=== PATIENT | male | born 1965 | race Caucasian/White ===

== ENCOUNTER 2016-04-01 12:11 | Emergency (ER) | payer OTHER ==
[2016-04-01 12:52] VITALS: RESP 16; TEMP 99.2
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
[2016-04-01 13:21] VITALS: BP 177/93; PULSE 84
[2016-04-01] MEDS ORDERED: HYDROcodone/APAP 5-325MG 1 EACH TAB PO STA (13:31)
== END 2016-04-01 13:40 | disposition home or self-care (01) ==
LOC: EC 12:11
DX: K08.89 Other specified disorders of teeth and supporting structures (principal); I10 Essential (primary) hypertension; M79.7 Fibromyalgia; E78.5 Hyperlipidemia, unspecified; F31.9 Bipolar disorder, unspecified; F17.200 Nicotine dependence, unspecified, uncomplicated; Z79.899 Other long term (current) drug therapy
CPT/HCPCS: 99282

== ENCOUNTER 2016-10-15 13:29 | Emergency (ER) | payer OTHER ==
[2016-10-15 13:53] VITALS: BP 170/91; PULSE 69; RESP 18; TEMP 99.2
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
--- NOTE | 2016-10-15 14:24 | XR ---
EXAMINATION TYPE: XR ribs LT w pa chest x-ray , 5 VIEWS DATE OF EXAM ORDERED: 10/15/2016 HISTORY: Pain. COMPARISON: Previous study dated 02/29/2016. FINDINGS: There has been previous rotator cuff surgery on the right. The lungs are clear. Pleural space are clear. The heart is not enlarged. There is no evidence of pneu mothorax. No displaced rib fracture is seen. IMPRESSION: 1. NO ACUTE INTRATHORACIC ABNORMALITY. 2. NO DISPLACED RIB FRACTURE IDENTIFIED. 3. POSTSURGICAL CHANGE.
== END 2016-10-15 14:35 | disposition home or self-care (01) ==
LOC: EC 13:29
DX: S20.212A Contusion of left front wall of thorax, initial encounter (principal); M79.7 Fibromyalgia; E78.5 Hyperlipidemia, unspecified; I10 Essential (primary) hypertension; F31.9 Bipolar disorder, unspecified; F17.200 Nicotine dependence, unspecified, uncomplicated; Z79.899 Other long term (current) drug therapy; V18.4XXA Pedal cycle driver injured in noncollision transport accident in traffic accident, initial encounter; Y93.55 Activity, bike riding; Y92.89 Other specified places as the place of occurrence of the external cause
CPT/HCPCS: 99283

== ENCOUNTER 2017-06-08 11:12 | Emergency (ER) | payer OTHER ==
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
[2017-06-08] MEDS ORDERED: HYDROcodone/APAP 5-325MG 1 EACH TAB PO STA (12:35)
[2017-06-08] MEDS ORDERED: KETOROLAC 60 MG/2 ML VIAL IM STA (12:35)
--- NOTE | 2017-06-08 13:06 | XR ---
EXAMINATION TYPE: XR ribs LT w pa chest xray DATE OF EXAM: 06/08/2017 COMPARISON: 10/15/2016 chest x-ray HISTORY: Pain TECHNIQUE: PA view the chest and 4 views of the left ribs are submitted. FINDINGS: Pleural-based thickening noted bilaterally. There is postsurgical change involving the righ t shoulder. Chronic appearing deformity involving the distal left clavicle stable from previous chest x-ray. There is a deformity of the posterior left third, fourth rib and fifth rib. No sizable pneumothorax. IMPRESSION: 1. Mildly displaced fractures involving the posterior left third, fourth and fifth ribs. 2. Deformity involving the distal left clavicle appears chronic and stable from chest x-ray of 017.
[2017-06-08 13:38] VITALS: BP 146/87; PULSE 87; RESP 16; TEMP 98.7
== END 2017-06-08 13:50 | disposition home or self-care (01) ==
LOC: EC 11:12
DX: S22.32XA Fracture of one rib, left side, initial encounter for closed fracture (principal); I10 Essential (primary) hypertension; F17.200 Nicotine dependence, unspecified, uncomplicated; Z79.899 Other long term (current) drug therapy; W01.0XXA Fall on same level from slipping, tripping and stumbling without subsequent striking against object, initial encounter
CPT/HCPCS: 71101; 99284; 96372; J1885

== ENCOUNTER 2017-09-07 13:52 | Emergency (ER) | payer OTHER ==
[2017-09-07 14:07] VITALS: BP 156/83; PULSE 90; RESP 20; TEMP 99.9
[2017-09-07] MEDS ORDERED: HYDROcodone/APAP 5-325MG 1 EACH TAB PO STA (14:23)
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
--- NOTE | 2017-09-07 14:55 | XR ---
EXAMINATION TYPE: XR hand complete RT DATE OF EXAM: 09/07/2017 COMPARISON: NONE HISTORY: Pain TECHNIQUE: Three views are submitted. FINDINGS: There is a deformity of the neck of the distal fourth metacarpal compatible with fracture. Tiny cyst involving the head of the third metacarpal. Cystic change or lucency involving the lunate may be chronic. IMPRESSION: 1. There is a mildly displaced fracture involving the distal fourth metacarpal. 2. Question lunate osteonecrosis. Follow-up MRI suggested.
== END 2017-09-07 15:30 | disposition home or self-care (01) ==
LOC: EC 13:52
DX: S62.334A Displaced fracture of neck of fourth metacarpal bone, right hand, initial encounter for closed fracture (principal); I10 Essential (primary) hypertension; F17.200 Nicotine dependence, unspecified, uncomplicated; Z88.6 Allergy status to analgesic agent; Z79.899 Other long term (current) drug therapy; W19.XXXA Unspecified fall, initial encounter; Y93.67 Activity, basketball; Y92.009 Unspecified place in unspecified non-institutional (private) residence as the place of occurrence of the external cause
CPT/HCPCS: 29125; 99283

== ENCOUNTER 2017-11-18 13:20 | Emergency (ER) | payer OTHER ==
[2017-11-18 13:29] VITALS: BP 153/92; PULSE 89; RESP 16; TEMP 98.8
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
--- NOTE | 2017-11-18 14:12 | XR ---
Right foot and right ankle HISTORY: Trauma and pain 3 views of the right foot, 3 views of the right ankle submitted. No comparisons Patient is status post reduction internal fixation for distal fibular fracture. Ossific densities pre sent at the ankle inferior to the medial malleolus which is well-corticated and also on the oblique v iew at the distal tibia, osteochondral defects present at the ankle mortise. Degenerative changes are present within the foot. Hypertrophic change at the level of the proximal in terphalangeal joint of the third digit is suspected, correlate for point tenderness to assess for fra cture at the medial aspect of the third digit. No dislocation. IMPRESSION: Evidence of previous trauma, correlate for possible fracture third digit, findings could be due to osteoarthritis. Findings of the ankle joint as described. There is likely osteochondral fra ctures which are possibly chronic at the ankle mortise.
== END 2017-11-18 14:35 | disposition home or self-care (01) ==
LOC: EC 13:20
DX: M79.671 Pain in right foot (principal); I10 Essential (primary) hypertension; F17.200 Nicotine dependence, unspecified, uncomplicated; Z79.899 Other long term (current) drug therapy; Z88.6 Allergy status to analgesic agent; Z87.81 Personal history of (healed) traumatic fracture; Z98.890 Other specified postprocedural states; W17.89XA Other fall from one level to another, initial encounter; Y93.39 Activity, other involving climbing, rappelling and jumping off
CPT/HCPCS: 99283

== ENCOUNTER 2018-10-30 13:11 | Emergency (ER) | payer OTHER ==
[2018-10-30 13:41] VITALS: BP 164/86; PULSE 76; RESP 16; TEMP 98.2
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
--- NOTE | 2018-10-30 14:17 | XR ---
EXAMINATION TYPE: XR wrist complete RT DATE OF EXAM: 10/30/2018 COMPARISON: NONE HISTORY: Pain after falling TECHNIQUE: 4 views FINDINGS: There are small cystic changes in the lunate and triquetrum. Scaphoid is intact. I see no f racture nor dislocation. There is minor spurring at the first carpometacarpal joint. There are no ero sions. IMPRESSION: Mild osteoarthritis. No fracture seen.
== END 2018-10-30 14:50 | disposition home or self-care (01) ==
LOC: EC 13:11
DX: S63.501A Unspecified sprain of right wrist, initial encounter (principal); S50.812A Abrasion of left forearm, initial encounter; I10 Essential (primary) hypertension; F17.200 Nicotine dependence, unspecified, uncomplicated; Z79.899 Other long term (current) drug therapy; Z88.6 Allergy status to analgesic agent; V18.9XXA Unspecified pedal cyclist injured in noncollision transport accident in traffic accident, initial encounter
CPT/HCPCS: 99283

== ENCOUNTER 2019-03-09 12:15 | Inpatient (IN) | payer OTHER ==
--- NOTE | 2019-03-09 13:45 | XR ---
Chest x-ray with right RIBS HISTORY: Trauma and pain From view of the chest and 4 views of the right ribs. Correlation to chest x-ray 06/08/2017 Subcutaneous emphysema has developed in the interval. There are displaced rib fractures at the right eighth and ninth, 10th ribs laterally. Minimal right apical pneumothorax noted. Heart size is normal. No evident pleural effusion. Postop changes noted to the right shoulder. Minimal subsegmental basila r atelectatic changes. IMPRESSION: Multiple right-sided rib fractures, minimal apical pneumothorax and subcutaneous emphysem a.
[2019-03-09] MEDS ORDERED: KETOROLAC 30 MG/ML 1 ML VIAL IVP STA (14:04)
[2019-03-09] MEDS ORDERED: MORPHINE SULFATE 4 MG/ML SYRINGE IVP STA ×2 (14:16→16:16)
[2019-03-09 14:34] LABS: HCT 43.2 % (39.0-53.0); HGB 14.9 gm/dL (13.0-17.5); MCH 34.4 pg (25.0-35.0); MCHC 34.5 g/dL (31.0-37.0); MCV 99.8 fL (80.0-100.0); Mean Platelet Volume 7.2; Platelet Count 297 k/uL (150-450); RBC 4.33 m/uL (4.30-5.90); RDW 12.9 % (11.5-15.5); WBC 11.3 k/uL (3.8-10.6)
[2019-03-09 14:43] LABS: ALT 21 U/L (4-49); AST 37 U/L (17-59); African American GFR (CKD) >90 (>60 ml/min/1.73 sqM); Albumin 3.5 g/dL (3.5-5.0); Alkaline Phosphatase 58 U/L (38-126); Anion Gap 7 mmol/L; Blood Urea Nitrogen 8 mg/dL (9-20); Calcium 9.1 mg/dL (8.4-10.2); Carbon Dioxide 25 mmol/L (22-30); Chloride 101 mmol/L (98-107); Glucose 83 mg/dL (74-99); Non-African American GFR(CKD) >90 (>60 ml/min/1.73 sqM); Potassium 4.4 mmol/L (3.5-5.1); Sodium 133 mmol/L (137-145); Total Bilirubin 1.4 mg/dL (0.2-1.3); Total Protein 6.6 g/dL (6.3-8.2)
--- NOTE | 2019-03-09 15:18 | CT ---
EXAMINATION TYPE: CT ChestAbdPelvis w con DATE OF EXAM: 03/09/2019 INDICATION: right side pain post fall COMPARISON: None CT DLP: 1103.1 mGycm CONTRAST: Performed without Oral Contrast and with IV Contrast, patient injected with 100 mL of Isovue 300. TECHNIQUE: Axial images at 5 mm thick sections. Reconstructed images in the coronal plane. Delayed images through the kidneys. FINDINGS: CT CHEST: Free air is within the subcutaneous tissues on the right. 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 There is some costochondral vertebral fracture of the 10th media l rib small fracture of the proximal 11th rib also be present aNo flail chest is evident. Pneumothor ax is not present. Minimal right pleural fluid may be present. There are old posterior left upper rib fractures. Vertebral body heights are preserved. Portion of the thyroid visualized is normal. No suspicious lung nodules or focal infiltrates are present. No enlarged mediastinal or hilar adenopathy is evident. The ascending aorta diameter at the level of the main pulmonary artery is 4.3 cm. The main pulmonary artery diameter at the bifurcation is 2.7 cm. Some mild coronary artery calcification may be present . CT ABDOMEN: Liver: Mild fatty infiltration may be present. No lacerations are evident. Spleen: Normal Pancreas: Normal Adrenal glands: The adrenal glands are normal. Gallbladder: Normal Kidneys: No masses are evident. No hydronephrosis is present. No cysts are present. Delayed images were obtained through the kidneys, which remain unremarkable. Aorta: Vascular calcification is within the aorta. Inferior vena cava: Normal. CT PELVIS: Loops of bowel within the abdomen and pelvis are normal. Postsurgical changes are at the right lo wer quadrant Colon and Small bowel. Appendix: Not identified. Postsurgical changes are present. Urinary bladder: Normal. Genitourinary structures: Prostate is slightly prominent. Osseous structures: No suspicious lytic or sclerotic lesions. IMPRESSIONS: 1. Right eighth ninth and 10th rib fractures with costovertebral junction rib fractures at T10 and 11 on the right. 2. No pneumothorax. Some subcutaneous emphysema is present on the right rib fracture levels. 3. Minimal right pleural fluid.
[2019-03-09] MEDS ORDERED: HYDROmorphone 0.5 MG/0.5 ML SYRINGE IVP PRN (16:27)
[2019-03-09] MEDS ORDERED: NALOXONE 0.4 MG/ML 1 ML VIAL IV PRN (16:27)
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
[2019-03-09 18:23] VITALS: RESP 18
[2019-03-09] MEDS: HYDROmorphone 1 MG/ML 1 ML SYRINGE IVP PRN ×2 (20:46→23:14)
[2019-03-09] MEDS: ALPRAZolam 0.25 MG TAB PO PRN (23:14)
[2019-03-10] MEDS: HYDROmorphone 1 MG/ML 1 ML SYRINGE IVP PRN ×4 (02:33→12:33)
[2019-03-10] MEDS: guaiFENesin SYRUP 100MG/5ML 200 MG/10 ML CUP PO PRN ×2 (02:36→09:18)
[2019-03-10] MEDS ORDERED: ONDANSETRON 4 MG/2 ML VIAL IVP PRN (02:37)
[2019-03-10] MEDS: ALPRAZolam 0.25 MG TAB PO PRN (05:09)
[2019-03-10 08:16] VITALS: BP 146/92; PULSE 82; TEMP 98.1
[2019-03-10] MEDS ORDERED: KETOROLAC 30 MG/ML 1 ML VIAL IVP PRN (11:10)
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
[2019-03-10] MEDS ORDERED: KETOROLAC 30 MG/ML 1 ML VIAL IVP SCH (14:15)
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
--- NOTE | 2019-03-10 14:53 | XR ---
EXAMINATION TYPE: XR chest 2V DATE OF EXAM: 03/10/2019 COMPARISON: Prior chest x-ray dated 03/09/2019 HISTORY: Rib fractures TECHNIQUE: Frontal and lateral views of the chest are obtained. FINDINGS: Some patchy basilar density on the right likely reflects subsegmental atelectatic change a nd associated effusion. Subcutaneous emphysema is again noted. Old rib fractures in the left upper ch est are stable. Multiple right-sided rib fractures are again noted. No evident pneumothorax. IMPRESSION: Probable basilar atelectasis and associated effusion.
--- NOTE | 2019-03-10 14:58 | P.DS ---
Providers Date of admission: 03/09/19 16:28 Expected date of discharge: 03/10/19 Attending physician: Camila Valdez Consults: 03/09/19 16:27 Consult Physician Stat Consulting Provider: Gregorio Larson Consult Reason/Comments: multiple traumatic rib fractures Do you want consulting provider notified?: Yes Consult Physician Stat Consulting Provider: [place] Consult Reason/Comments: Multiple traumatic rib fractures Do you want consulting provider notified?: Yes Primary care physician: Tawanna Miller Hospital Course: 54-year-old male who presented to the emergency room after sustaining a fall down several stairs and landing on his right side. patient presented to the emergency room the following day secondary to pain. Patient underwent workup in the emergency room. Patient was found to have multiple right-sided rib fractures of the eighth, ninth, and 10th ribs per XR. computed tomography scan of the chest abdomen and pelvis was completed revealing right-sided rib fractures of 8, 9, and 10 with costovertebral junction rib fractures at the 10th and 11th rib. No pneumothorax. Patient was admitted to the hospital overnight for observation. Pulmonary was consulted to evaluate patient. patient has remained stable. his pain is controlled on oral medications. history of discharge home today. He is to follow up on an outpatient basis. Please see EMR for further hospital course details. Discharge diagnosis 1 Right-sided chest wall pain secondary to a fall with fractures of ribs 9, 10, 11. There is also costovertebral junction rib fractures at T10 and T11. Subcutaneous emphysema. No pneumothorax. 2 Chronic and ongoing tobacco dependence 3 Marijuana use. 4 Alcohol use. 5 Hypertension. Nurse practitioner note has been reviewed by physician. Signing provider agrees with the documented findings, assessment, and plan of care. Patient Condition at Discharge: Stable Plan - Discharge Summary Discharge Rx Participant: Yes New Discharge Prescriptions: New Nicotine 14Mg/24Hr Patch [Habitrol] 1 patch TRANSDERM DAILY #14 patch Omeprazole 40 mg PO DAILY #30 cap Continue Ibuprofen [Motrin] 600 mg PO TID No Action Lisinopril [Zestril] 10 mg PO DAILY #30 tab amLODIPine [Norvasc] 10 mg PO DAILY Discharge Medication List Lisinopril [Zestril] 10 mg PO DAILY #30 tab 03/01/16 [Rx] amLODIPine [Norvasc] 10 mg PO DAILY 06/08/17 [History] Ibuprofen [Motrin] 600 mg PO TID 03/09/19 [History] Nicotine 14Mg/24Hr Patch [Habitrol] 1 patch TRANSDERM DAILY #14 patch 03/10/19 [Rx] Omeprazole 40 mg PO DAILY #30 cap 03/10/19 [Rx] Follow up Appointment(s)/Referral(s): Paul Stacy MD [Primary Care Provider] - 1-2 days Gregorio Larson MD [STAFF PHYSICIAN] - 1 Week Patient Instructions/Handouts: Fall Prevention (ED) Activity/Diet/Wound Care/Special Instructions: please continue to use your incentive spirometer after discharge.
[2019-03-10] MEDS ORDERED: HEPARIN SODIUM,PORCINE 5,000 UNIT/ML 1 ML VIAL SQ SCH (21:00)
[2019-03-10] MEDS ORDERED: FAMOTIDINE 20 MG TAB PO SCH (21:00)
[2019-03-11] MEDS ORDERED: LISINOPRIL 10 MG TAB PO SCH (09:00)
[2019-03-11] MEDS ORDERED: amLODIPine 10 MG TAB PO SCH (09:00)
== END 2019-03-10 15:46 | disposition home or self-care (01) | DRG 184 ==
LOC: EC 12:15 → OBSVTOIN 16:28 → 1SOBS 16:28
PROVIDERS: ADMIT Surgery Plastic and Reconstructive Surgery; ATTEND Surgery Plastic and Reconstructive Surgery
DX: S22.41XA Multiple fractures of ribs, right side, initial encounter for closed fracture (principal); T79.7XXA Traumatic subcutaneous emphysema, initial encounter; E78.5 Hyperlipidemia, unspecified; M79.7 Fibromyalgia; I10 Essential (primary) hypertension; K58.9 Irritable bowel syndrome, unspecified; K21.9 Gastro-esophageal reflux disease without esophagitis; M19.90 Unspecified osteoarthritis, unspecified site; M54.9 Dorsalgia, unspecified; F17.210 Nicotine dependence, cigarettes, uncomplicated; Z71.6 Tobacco abuse counseling; Z79.1 Long term (current) use of non-steroidal anti-inflammatories (NSAID); Z79.899 Other long term (current) drug therapy; Z86.59 Personal history of other mental and behavioral disorders; Z90.49 Acquired absence of other specified parts of digestive tract; Z86.73 Personal history of transient ischemic attack (TIA), and cerebral infarction without residual deficits; W10.8XXA Fall (on) (from) other stairs and steps, initial encounter; Y92.008 Other place in unspecified non-institutional (private) residence as the place of occurrence of the external cause; Y93.01 Activity, walking, marching and hiking; Z82.49 Family history of ischemic heart disease and other diseases of the circulatory system; Z83.3 Family history of diabetes mellitus
CPT/HCPCS: 36415; 71046; 71260; 74177; 80053; 85027; 96374; 96376; 99285

== ENCOUNTER → 2020-11-27 | Outpatient (CLI) | payer OTHER ==
--- NOTE | 2020-11-27 11:54 | XR ---
EXAMINATION TYPE: XR shoulder complete LT DATE OF EXAM: 11/27/2020 COMPARISON: NONE HISTORY: Pain TECHNIQUE: Three views are submitted. FINDINGS: There is a comminuted displaced fracture of the left humeral neck. Remote appearing fracture of the d istal left clavicle. Chronic rib deformities suggest remote fractures. Metallic density overlying the chest may be superficial to the patient and should be correlated clinically. IMPRESSION: 1. Comminuted displaced fracture left humeral neck.
== END | disposition home or self-care (01) ==
LOC: RADXRMAIN 10:57
PROVIDERS: ATTEND Orthopaedic Surgery Adult Reconstructive Orthopaedic Surgery
DX: S42.212A Unspecified displaced fracture of surgical neck of left humerus, initial encounter for closed fracture (principal)

== ENCOUNTER → 2022-09-24 | Outpatient (CLI) | payer OTHER ==
--- NOTE | 2022-09-24 12:25 | CTL ---
EXAMINATION TYPE: CT Low Dose Lung DATE OF EXAM ORDERED: 09/24/2022 HISTORY: Z12.2. 40 pack year history of smoking. Lung cancer screening CT DLP: [address] CTDI: 2.45 mGy Automated exposure control for dose reduction was used. SCREENING VISIT: First screening visit COMPARISON: CT chest abdomen pelvis 03/09/2019 TECHNIQUE: Low dose computed tomography scan was performed through the chest at 1 mm thick sections a nd reconstructed images in multiple planes at 1 mm and [address] DIAGNOSTIC QUALITY: Satisfactory FINDINGS: LUNG NODULES: No clinically significant pulmonary nodules. LUNGS: COPD: Severity: None Fibrosis: Severity: Right-sided mild pleural parenchymal scarring identified. Lymph nodes: None Other findings: None RIGHT PLEURAL SPACE: Effusion: Tiny Calcification: None Thickening: Mild Pneumothorax: None LEFT PLEURAL SPACE: Effusion: None Calcification: None Thickening: None Pneumothorax: None HEART: Heart Size: Normal Coronary Calcification: Moderate Pericardial Effusion: None OTHER FINDINGS: Upper abdomen: None Bony thorax: No acute osseous abnormality. Remote bilateral rib fractures. Mild degenerative changes of the thoracic spine. Supraclavicular region: None Other: Bilateral gynecomastia. IMPRESSION: 1. No clinically significant pulmonary nodules. 2. Right lung pleural-parenchymal scarring with trace right pleural effusion. CT LUNG RAD AND CT CHEST RECOMMENDATION: Lung-Rad 1 Negative: Continue annual screening with LDCT in 12 months. S Modifier (other clinically significant findings): None
== END | disposition home or self-care (01) ==
LOC: RADCTMAIN 11:53
PROVIDERS: ATTEND Family Medicine
DX: Z12.2 Encounter for screening for malignant neoplasm of respiratory organs (principal); J98.4 Other disorders of lung; J90 Pleural effusion, not elsewhere classified; F17.210 Nicotine dependence, cigarettes, uncomplicated
CPT/HCPCS: 71271

== ENCOUNTER 2023-07-01 05:47 | Day surgery (SDC) | payer OTHER ==
[2023-06-29 12:19] VITALS: BMI 30.8
[2023-07-01] MEDS: LACTATED RINGERS 1,000 ML IV ONE (06:50)
[2023-07-01] MEDS: ONDANSETRON 4 MG/2 ML VIAL ONE (06:51)
[2023-07-01] MEDS ORDERED: LIDOCAINE 1% INJ 10MG/ML (20 ML MDV) ONE (07:00)
[2023-07-01] MEDS ORDERED: PROPOFOL 10 MG/ML 20 ML VIAL IV ONE (07:00)
[2023-07-01 07:22] VITALS: RESP 16; TEMP 97.3
--- NOTE | 2023-07-01 07:22 | P.PCN ---
Date of Procedure: 07/01/23 Procedure(s) Performed: Brief history: Patient is a [id number] white malescheduled for an elective upper endoscopy as well as colonoscopy as a part of evaluation ofGERD and screening for colon cancer Procedure performed: Esophagogastroduodenoscopy With biopsy Colonoscopy With biopsy Preoperative diagnosis: GERD Screening for colon cancer Anesthesia: MAC Procedure: After informed consent was obtained from the patient was brought into the endoscopy unit and IV sedation was administered by anesthesia under continuous monitoring. Initially upper endoscopy was done. The Olympus GF 160 video endoscope was inserted inserted into the mouth and esophagus intubated without any difficulty and was gradually advanced into the stomach and duodenum and carefully examined. The bulb and second part of the duodenum appeared normal. The scope was then withdrawn into the stomach adequately insufflated with air and upon careful examination the antrum And mild gastritis and biopsies were done from this area. There was diverticulum noted in the prepyloric area. Mucosa of thebody, cardia and fundus appeared normal. The scope was then withdrawn into the esophagus.Small hiatal hernia noted. The GE junction was located at 40 cm to the incisors. It appeared regular 3 tongues of Green's ap pearing mucosa extending 1 cm proximal to the GE junction which was biopsied.. Rest of the esophagus appeared normal. Patient tolerated the procedure well. At this time the patient continued to remain sedation. Initial digital rectal examination was normal. Olympus CF 160 video colonoscope was then inserted into the rectum and gradually advanced to the right colon without any difficulty. Careful examination was performed as the scope was gradually being withdrawn. The prep was excellent. The Ileocolonic anastomosis in the right colon appeared normal.Mucosa of the transverse colon, Appeared normal. The descending colon there was a 3 mm and 4 mm sessile polyp removed by cold biopsy. In the proximal rectum there was a 4 mm polyp removed by cold biopsy. Rest of thedescending colon, sigmoid colon and rectum appeared normal. Retroflexion was performed in the rectum and no lesions were noted. Patient tolerated the procedure well. Impression: 1.Upper endoscopy revealed small hiatal hernia, mild gastritis and short segment Green's esophagus 2.Colonoscopy revealed 3 mm and 4 mm ascending colon polyps and a 4 mm rectal polyp removed by biopsy. Recommendations: Findings of this examination were discussed with the patient as well as His family. He was advised to follow with the biopsy results. If the biopsy confirms the presence of Green's esophagus he can have a repeat upper endoscopy in 3 years. If the biopsies of the colon polyps tubular adenoma, recommend repeat colonoscopy in 5 years. In the meantime he will continue with Protonix 40 mg daily and follow antireflux measures.
[2023-07-01 08:02] VITALS: BP 151/88; PULSE 88
== END 2023-07-01 08:10 | disposition home or self-care (01) ==
LOC: ORWHC2ENDO 05:47
PROVIDERS: ATTEND Internal Medicine Gastroenterology
DX: Z12.11 Encounter for screening for malignant neoplasm of colon (principal); D12.4 Benign neoplasm of descending colon; K29.50 Unspecified chronic gastritis without bleeding; K44.9 Diaphragmatic hernia without obstruction or gangrene; K21.9 Gastro-esophageal reflux disease without esophagitis; I10 Essential (primary) hypertension; E78.5 Hyperlipidemia, unspecified; M79.7 Fibromyalgia; M19.90 Unspecified osteoarthritis, unspecified site; F31.9 Bipolar disorder, unspecified; F17.200 Nicotine dependence, unspecified, uncomplicated; Z86.718 Personal history of other venous thrombosis and embolism; Z86.711 Personal history of pulmonary embolism; Z79.899 Other long term (current) drug therapy
CPT/HCPCS: 88305; 45380; 43239; J2405; J2001; J2704